=== PATIENT | male | born 1995 | race Caucasian/White ===

== ENCOUNTER 2022-10-12 13:36 | Emergency (ER) | payer OTHER ==
[~2022-10-12] VITALS: Ht 170.2 cm; Wt 72.6 kg
[2022-10-12 13:40] VITALS: BP 143/99
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
[2022-10-12] MEDS ORDERED: BACITRACIN OINT 500 UNITS/GM PKT TP ONE (14:05)
[2022-10-12] MEDS ORDERED: ACETAMINOPHEN 325 MG TAB PO ONE (14:05)
[2022-10-12] MEDS ORDERED: LIDOCAINE MPF 1% 10 MG/ML VIAL INJ ONE (14:15)
--- NOTE | 2022-10-12 14:29 | NUR ---
WOUND TO FOREHEAD IRRIGATED
[2022-10-12] MEDS ORDERED: ACET-10509 PO (15:12)
[2022-10-12] MEDS ORDERED: BACI-416 TP (15:12)
--- NOTE | 2022-10-12 15:16 | NUR ---
BANDAID APPLIED TO WOUND
--- NOTE | 2022-10-12 16:00 | NUR ---
Patient discharged with v/s stable. Written and verbal after care instructions ABOUT FACIAL LACERATION given and explained. Patient alert, oriented and verbalized understanding of instructions. Ambulatory with steady gait. All questions addressed prior to discharge. ID band removed. Patient advised to follow up with PMD. Rx of TYLENOL EXTRA STRENGTH given. Patient educated on indication of medication including possible reaction and side effects. Opportunity to ask questions provided and answered.
== END 2022-10-12 16:00 | disposition home or self-care (01) ==
LOC: MED 13:36
DX: S01.81XA Laceration without foreign body of other part of head, initial encounter (principal); Z79.2 Long term (current) use of antibiotics; Z79.899 Other long term (current) drug therapy; W22.8XXA Striking against or struck by other objects, initial encounter; Y92.89 Other specified places as the place of occurrence of the external cause; Y93.89 Activity, other specified; Y99.0 Civilian activity done for income or pay
CPT/HCPCS: 12013; 90471; 90715; 99283

== ENCOUNTER 2022-10-14 11:18 | Emergency (ER) | payer OTHER ==
[~2022-10-14] VITALS: Ht 170.2 cm; Wt 72.6 kg
[~2022-10-14 11:18] MED LIST: ACET-10509 PO; BACI-416 TP
[2022-10-14 11:58] VITALS: BP 150/94
[2022-10-14 12:30] VITALS: BP 150/94
--- NOTE | 2022-10-14 12:30 | NUR ---
lwbs per renato johnson
== END 2022-10-14 12:30 | disposition left against medical advice (07) ==
LOC: MED 11:18
DX: S01.81XD Laceration without foreign body of other part of head, subsequent encounter (principal); Z53.21 Procedure and treatment not carried out due to patient leaving prior to being seen by health care provider; X58.XXXD Exposure to other specified factors, subsequent encounter

== ENCOUNTER 2022-10-21 10:16 | Emergency (ER) | payer OTHER ==
[~2022-10-21] VITALS: Ht 170.2 cm; Wt 81.6 kg
[2022-10-21 10:24] VITALS: BP 141/89
--- NOTE | 2022-10-21 10:30 | NUR ---
ASSUMED PATIENT CARE, NURSING ASSESSMENT COMPLETED.
--- NOTE | 2022-10-21 10:45 | NUR ---
SUTURES REMOVED BY
--- NOTE | 2022-10-21 10:49 | NUR ---
DISPO AND MEDICAL DECISION MAKING, DC HOME WITH AFTERCARE INSTRUCTIONS, UNDERSTOOD BY PATIENT WELL. DC HOME AMBULATORY.
[2022-10-21 10:50] VITALS: BP 141/89
== END 2022-10-21 10:49 | disposition home or self-care (01) ==
LOC: MED 10:16
DX: S09.90XD Unspecified injury of head, subsequent encounter (principal); Z48.02 Encounter for removal of sutures; Z79.899 Other long term (current) drug therapy; Z98.890 Other specified postprocedural states; X58.XXXD Exposure to other specified factors, subsequent encounter
CPT/HCPCS: 99281